=== PATIENT | female | born 1995 | race Caucasian/White ===

== ENCOUNTER 2016-11-12 17:51 | Emergency (ER) | payer OTHER ==
[2016-11-12 18:04] VITALS: BP 101/62; PULSE 92; TEMP 98; BMI 20.3
--- NOTE | 2016-11-12 18:16 | PDOC ---
History of Present Illness - History of Present Illness Initial Comments: 11/12/16 19:38 Patient is a 21 year old female (LNMP: 08/2016 - due to control) with significant medical hx of asthma who is presenting to the ED with lower back pain from today. Patient reports she's had lower back pain for the past year but has never been evaluated by a doctor. Today the patient was lying in bed when she moved and felt as though she pulled a muscle. The patient states she moved again and made the pain worse. She denies fever, chills, nausea, vomiting , diarrhea, incontinence, hematuria, dysuria, or changes in urination. Allergies: Penicillin <Natalie Rowe - Last Filed: 11/12/16 20:38> <Yelena Sanders - Last Filed: 11/12/16 20:53> - General Chief Complaint: Pain Stated Complaint: BACK PAIN Time Seen by Provider: 11/12/16 18:14 Past History <Natalie Rowe - Last Filed: 11/12/16 20:38> - Past Medical History Asthma: Yes Suicide Attempt (Hx): No - Immunization History Immunization Up to Date: Yes - Psycho/Social/Smoking Cessation Hx Anxiety: No Suicidal Ideation: No Smoking Status: No Smoking History: Never smoked Have you smoked in the past 12 months: No Number of Cigarettes Smoked Daily: 20 Information on smoking cessation initiated: No Hx Alcohol Use: No Drug/Substance Use Hx: No Substance Use Type: None <Yelena Sanders - Last Filed: 11/12/16 20:53> - Past Medical History Allergies/Adverse Reactions: Allergies Allergy/AdvReac Type Severity Reaction Status Date / Time Penicillins Allergy Rash Verified 11/12/16 18:04 Home Medications: Ambulatory Orders Mometasone Furoate [Nasonex] 2 inh NS DAILY #1 spray.inh 07/27/15 Albuterol Sulfate Inhaler - [Ventolin Hfa Inhaler -] 2 inh PO Q6H #1 inh Ondansetron [Zofran Odt -] 4 mg SL BID #10 od.tablet 01/06/16 Cyclobenzaprine HCl [Flexeril -] 10 mg PO TID #9 tablet 11/12/16 Ibuprofen [Motrin -] 400 mg PO TID PRN #21 tablet 11/12/16 Polyethylene Glycol 3350 [Miralax (For Daily Use) -] 17 gm PO DAILY #1 bottle Review of Systems - Review of Systems Comments:: 11/12/16 19:44 CONSTITUTIONAL: Absent: fever, chills, diaphoresis, generalized weakness, malaise, loss of appetite HEENT: Absent: rhinorrhea, nasal congestion, throat pain, throat swelling, difficulty swallowing, mouth swelling, ear pain, eye pain, visual changes CARDIOVASCULAR: Absent: chest pain, syncope, palpitations, irregular heart rate, lightheadedness , peripheral edema RESPIRATORY: Absent: cough, shortness of breath, dyspnea with exertion, orthopnea, wheezing, stridor, hemoptysis GASTROINTESTINAL: Absent: abdominal pain, abdominal distension, nausea, vomiting, diarrhea, constipation, melena, hematochezia GENITOURINARY: Absent: dysuria, frequency, urgency, hesitancy, hematuria, flank pain, genital pain MUSCULOSKELETAL: Present: lower back pain Absent: myalgia, arthralgia, joint swelling SKIN: Absent: rash, itching, pallor HEMATOLOGIC/IMMUNOLOGIC: Absent: easy bleeding, easy bruising, lymphadenopathy, frequent infections ENDOCRINE: Absent: unexplained weight gain, unexplained weight loss, heat intolerance, cold intolerance NEUROLOGIC: Absent: headache, focal weakness or paresthesia, dizziness, unsteady gait, seizure, mental status changes, bladder or bowel incontinence. PSYCHIATRIC: Absent: anxiety, depression, suicidal or homicidal ideation, hallucinations <Natalie Rowe - Last Filed: 11/12/16 20:38> *Physical Exam - Vital Signs Last Vital Signs Temp Pulse Resp BP Pulse Ox 98 F 92 H 18 101/62 100 11/12/16 18:00 11/12/16 18:00 11/12/16 18:00 11/12/16 18:00 11/12/16 18:00 - Physical Exam Comments: 11/12/16 19:44 GENERAL: Well developed, well nourished. Awake and alert. No acute distress. HEENT: Normocephalic, atraumatic. PERRLA, EOMI. No conjunctival pallor. Sclera are non- icteric. Moist mucous membranes. Oropharynx is clear. NECK: Supple. Full ROM. No JVD. Carotid pulses 2+ and symmetric, without bruits. No thyromegaly. No lymphadenopathy. CARDIOVASCULAR: Regular rate and rhythm. No murmurs, rubs, or gallops. Distal pulses are 2+ and symmetric. PULMONARY: No evidence of respiratory distress. Lungs clear to auscultation bilaterally. No wheezing, rales or rhonchi. ABDOMINAL: Soft. Non-tender. Non-distended. No rebound or guarding. No organomegaly. Normoactive bowel sounds. MUSCULOSKELETAL: L5-S1 tenderness. Normal range of motion at all joints. No bony deformities. No CVA tenderness. EXTREMITIES: No cyanosis. No clubbing. No edema. No calf tenderness. SKIN: Warm and dry. Normal capillary refill. No rashes. No jaundice. NEUROLOGICAL: Alert, awake, appropriate. Cranial nerves 2-12 intact. Normal speech. Toes are down-going bilaterally. Gait is normal without ataxia. PSYCHIATRIC: Cooperative. Good eye contact. Appropriate mood and affect. <Natalie Rowe - Last Filed: 11/12/16 20:38> - Vital Signs Last Vital Signs Temp Pulse Resp BP Pulse Ox 98 F 92 H 18 101/62 100 11/12/16 18:00 11/12/16 18:00 11/12/16 18:00 11/12/16 18:00 11/12/16 18:00 <Yelena Sanders - Last Filed: 11/12/16 20:53> ED Treatment Course - ADDITIONAL ORDERS Additional order review: Laboratory Results 11/12/16 19:00 Urine HCG, Qual Negative - RADIOLOGY Radiograph Interpretation: 11/12/16 20:38 Lumbar X-Ray Impression: Unremarkable examination, as described Reported By: Frances Charles MD - Medications Given in the ED: ED Medications Discontinued Medications Generic Name Dose Route Start Last Admin Trade Name Freq PRN Reason Stop Dose Admin Ketorolac Tromethamine 60 mg 11/12/16 18:24 11/12/16 18:32 Toradol Injection - IM 11/12/16 18:25 60 mg ONCE ONE Administration <Natalie Rowe - Last Filed: 11/12/16 20:38> *DC/Admit/Observation/Transfer - Attestations Scribe Attestion: 11/12/16 19:46 Documentation prepared by Natalie Rowe, acting as medical device for Yelena Sanders MD. <Natalie Rowe - Last Filed: 11/12/16 20:38> <Yelena Sanders - Last Filed: 11/12/16 20:53> Diagnosis at time of Disposition: Spasm of back muscles Constipation Qualifiers: Constipation type: unspecified constipation type Qualified Code(s): K59.00 - Constipation, unspecified - Discharge Dispostion Disposition: HOME Condition at time of disposition: Stable - Prescriptions Prescriptions: Cyclobenzaprine HCl [Flexeril -] 10 mg PO TID #9 tablet Polyethylene Glycol 3350 [Miralax (For Daily Use) -] 17 gm PO DAILY #1 bottle Ibuprofen [Motrin -] 400 mg PO TID PRN #21 tablet PRN Reason: Back Pain - Referrals Referrals: Chase Peña MD [Primary Care Provider] - - Patient Instructions Printed Discharge Instructions: DI for Constipation, DI for Low Back Pain Additional Instructions: Please nut picker your medications at your pharmacy RETURN FOR WORSENING SYMPTOMS
[2016-11-12] MEDS ORDERED: KETOROLAC TROMETHAMINE 60 MG/2 ML VIAL IM ONE (18:24)
[2016-11-12] MEDS ORDERED: KETOROLAC TROMETHAMINE 60 MG/2 ML VIAL ONE (18:29)
[2016-11-12] MEDS ORDERED: diazePAM 2 MG TABLET PO ONE (19:52)
[2016-11-12] MEDS ORDERED: diazePAM 2 MG TABLET ONE (20:06)
[2016-11-12] MEDS ORDERED: OXYCODONE/APAP 5/325MG COMBO TABLET PO ONE (20:51)
[2016-11-12] MEDS ORDERED: OXYCODONE/APAP 5/325MG COMBO TABLET ONE (20:55)
== END 2016-11-12 21:04 | disposition home or self-care (01) ==
LOC: JER 17:51
PROC: 3E0233Z Introduction of Anti-inflammatory into Muscle, Percutaneous Approach (ICD-10-PCS; principal; 2016-11-12)
DX: M62.830 Muscle spasm of back (principal); K59.00 Constipation, unspecified; J45.909 Unspecified asthma, uncomplicated
CPT/HCPCS: 72100-TC; 84703; 96372; 99283-25

== ENCOUNTER 2020-07-26 16:19 | Emergency (ER) | payer OTHER ==
[2020-07-26 16:37] VITALS: BP 111/51; PULSE 102; TEMP 98.7; BMI 19.4
--- NOTE | 2020-07-26 16:40 | PDOC ---
Rapid Medical Evaluation Chief Complaint: Pain Medical Evaluation: Allergies Allergy/AdvReac Type Severity Reaction Status Date / Time Penicillins Allergy Rash Verified 07/26/20 16:34 07/26/20 16:34 25 yo F h/o asthma, anemia, , LMP 03/23/20 c/o LLQ abd pain x 3 days, approx 17 weeks, + nausea. denies f/c/v, sob, cp, urinary complaints, vaginal bleeding or vaginal discharge. has not had an ultrasound test, does not have an appointment scheduled with OB. NAD ambulatory A/P: Abdominal pain in labs, UA preg us 07/26/20 16:41 Discharge Disposition - Diagnosis Abdominal pain during Qualifiers: Trimester: second trimester Qualified Code(s): O26.892 - Other specified related conditions, second trimester; R10.9 - Unspecified abdominal pain - Referrals - Patient Instructions - Post Discharge Activity
[2020-07-26] MEDS ORDERED: HIV POST EXPOSURE PROPHYLAXIS KIT PO ONE (17:15)
--- NOTE | 2020-07-26 17:28 | PDOC ---
History of Present Illness - General Chief Complaint: Pain Stated Complaint: 17 WEEKS /ABDOMINAL PAIN Time Seen by Provider: 07/26/20 17:11 History Source: Patient - History of Present Illness Timing/Duration: reports: other Quality: reports: mild Past History - Medical History Allergies/Adverse Reactions: Allergies Allergy/AdvReac Type Severity Reaction Status Date / Time Penicillins Allergy Rash Verified 07/26/20 16:34 Home Medications: Ambulatory Orders Albuterol Sulfate Inhaler - [Ventolin HFA Inhaler -] 1 - 2 inh PO Q4H PRN 03/28/15 Oseltamivir Phosphate [Tamiflu] 75 mg PO BID #10 capsule 12/28/17 Prednisone 40 mg PO DAILY #16 tablet 12/28/17 Asthma: Yes COPD: No - Reproductive History Is Patient Now?: Yes - Immunization History Immunization Up to Date: Yes - Psycho-Social/Smoking History Smoking Status: No Smoking History: Never smoked Have you smoked in the past 12 months: No Number of Cigarettes Smoked Daily: 20 - Substance Abuse Hx (Audit-C & DAST Scrn) How often the patient has a drink containing alcohol: Never Score: In Men: 4 or > Positive; In Women: 3 or > Positive: 0 Screen Result (Pos requires Nsg. Audit-10AR): Negative Review of Systems - Review of Systems Constitutional: No: Chills, Fever ABD/GI: Yes: Abdominal cramping. No: Nausea, Vomiting : No: Dysuria, Flank Pain *Physical Exam - Vital Signs Last Vital Signs Temp Pulse Resp BP Pulse Ox 98.7 F 102 H 18 111/51 L 100 07/26/20 16:34 07/26/20 16:34 07/26/20 16:34 07/26/20 16:34 07/26/20 16:34 - Physical Exam General Appearance: Yes: Appropriately Dressed. No: Apparent Distress HEENT: positive: Normal Voice Neck: positive: Supple Respiratory/Chest: negative: Respiratory Distress Gastrointestinal/Abdominal: positive: Soft. negative: Tender Musculoskeletal: negative: CVA Tenderness Integumentary: positive: Dry, Warm Neurologic: positive: Fully Oriented, Alert, Normal Mood/Affect ED Treatment Course - RADIOLOGY Radiology Studies Ordered: Category Date Time Status OB LIMITED US [US] Stat Ultrasound 07/26/20 17:18 Ordered Medical Decision Making - Medical Decision Making 07/26/20 17:24 25-year-old female, hx of irreg menses s/p getting off [employer] 1 yr ago, LMP >2 months ago, just found out she was in clinic last week and states she was told she was approximately 17 weeks though no ultrasound was done, now presents with left lower abd cramps x3 days. No vaginal bleed, dysuria, nausea or vomiting. States she returned to the clinic today w/ abd pain and was referred to the ER see exam w/ abd pain Stable and in NAD Unclear gest age as irreg menses and reports LMP >2 months ago No US this preg No vag bleed or dysuria -US -UA 07/26/20 18:29 UA wnl. Pt currently in US. 07/26/20 18:58 Patient showed 15-week IUP with heart rate. Urine unremarkable. Stable for discharge to follow-up with her PEDICURIST 07/26/20 18:58 Discharge - Discharge Information Problems reviewed: Yes Clinical Impression/Diagnosis: Abdominal pain during Qualifiers: Trimester: second trimester Qualified Code(s): O26.892 - Other specified related conditions, second trimester Condition: Good Disposition: HOME - Follow up/Referral Referrals: Leanne Schmitz MD [Primary Care Provider] - - Patient Discharge Instructions Additional Instructions: Your ultrasound shows a 15 week fetus with heart rate Your urine showed no infection Please follow up with you PEDICURIST - Post Discharge Activity
[2020-07-26 18:17] LABS: PH,URINE 6.5 (5.0-8.0); URINE APPEARANCE TURBID; URINE BILIRUBIN NEGATIVE (NEGATIVE); URINE COLOR YELLOW; URINE GLUCOSE (UA) NEGATIVE (NEGATIVE); URINE KETONE TRACE (NEGATIVE); URINE LEUK ESTERASE NEGATIVE (NEGATIVE); URINE NITRITE NEGATIVE (NEGATIVE); URINE PROTEIN NEGATIVE (NEGATIVE)
== END 2020-07-26 19:13 | disposition home or self-care (01) ==
LOC: JER 16:19
DX: O26.892 Other specified pregnancy related conditions, second trimester (principal); R10.9 Unspecified abdominal pain
CPT/HCPCS: 76815; 81003; 84703; 99284-25

== ENCOUNTER 2020-08-21 17:38 | Emergency (ER) | payer OTHER ==
[2020-08-21 17:58] VITALS: TEMP 97; BMI 20.9
--- OUTSIDE RECORDS SUMMARY | 2020-08-21 18:08 | XMS ---
:1995 Author Organization [facility] Support Name Relationship Address Phone [place] [address] UE, UNEMPLOYED Unavailable Unavailable Unavailable UE Unavailable Unavailable Unavailable [place] [address] [place] [address] [address] [place] [address] Re-disclosure Warning The records that you are about to access may contain information from federally- assisted alcohol or drug abuse programs. If such information is present, then the following federally mandated warning applies: This information has been disclosed to you from records protected by federal confidentiality rules (42 CFR part 2). The federal rules prohibit you from making any further disclosure of this information unless further disclosure is expressly permitted by the written consent of the person to whom it pertains or as otherwise permitted by 42 CFR part 2. A general authorization for the release of medical or other information is NOT sufficient for this purpose. The Federal rules restrict any use of the information to criminally investigate or prosecute any alcohol or drug abuse patient.The records that you are about to access may contain highly sensitive health information, the redisclosure of which is protected by Article 27-F of the [facility] Public Health law. If you continue you may haveaccess to information: Regarding HIV / AIDS; Provided by facilities licensed or operated by the [facility] Office of Mental Health; or Provided by the [facility] Office for People With Developmental Disabilities. If such information is present, then the following [facility] mandated warning applies: This information has been disclosed to you from confidential records which are protected by state law. State law prohibits you from making any further disclosure of this information without the specific written consent of the person to whom it pertains, or as otherwise permitted by law. Any unauthorized further disclosure in violation of state law may result in a fine or half-way sentence or both. A general authorization for the release of medical or other information is NOT sufficient authorization for further disclosure. Insurance Providers Payer name Policy type Policy ID Covered Covered green party's Policy P grady / Coverage green party ID relationship to [employer] type bush PENDING [id number] SP [id number] WC/NF ONLY MAXIM [id number] SP [id number] 600 HEALTH NON CAP Results ID Date Data Source [id number] 07/18/2020 12:00:00 AM EDT [place] Name Value Range Interpretation Code Description Data Lesvia rce(s) Supporting Document(s ) 2019-nCoV [facility] RNA XXX CRUZ+probe- Imp This lab was ordered by JOHNNY Robbins and reported by [employer] Procedure
--- NOTE | 2020-08-21 19:01 | PDOC ---
History of Present Illness - General Chief Complaint: Pain Stated Complaint: ABD PAIN & BACK PAIN Time Seen by Provider: 08/21/20 18:52 - History of Present Illness Initial Comments: HPI: 08/21/20 18:59 25 yo F PMH asthma, , approximately 18.5 weeks gestation, presenting with L sided pelvic discomfort and lower back pain while working today. Denies vaginal bleeding, vaginal discharge, CP, SOB, fevers, chills, N/V, urinary changes. 08/21/20 19:33 Reassessed patient. Complains of ongoing L pelvic pain, 8/10, and low back pain. She expresses a lot of concern due to it being her first and being unsure what pain medication she should be taking. Has a follow up ultrasound this upcoming Saturday. Will give acetaminophen 650 mg and Lidoderm patch for low back. 08/21/20 20:10 TVUS: A single intrauterine gestation is present in breech presentation. There is positive cardiac activity at a rate of 139 bpm. Estimated age by ultrasound: 18 weeks and 4 days, corresponding to delivery date of 01/18/2021. There is a normal amount of amniotic fluid. The placenta has a anterior location. Cervix is closed with a length of 3.5 cm. There is no placenta previa. measurements: BPD = 4.2 cm HC = 15.4 cm AC = 13.4 cm FL = 2.7 cm Incidental note is made of a 1.6 cm dominant follicle in the right ovary. There is no evidence of free fluid. IMPRESSION: 1. Single viable intrauterine gestation in breech position. The estimated age is 18 weeks and 4 days Will f/u UA, response to pain medication. Plan to dc for further outpatient management. 08/21/20 20:35 UA without UTI. Patient feeling better. Will dc with Lidoderm patch, acetaminophen prescription. Past History - Medical History Allergies/Adverse Reactions: Allergies Allergy/AdvReac Type Severity Reaction Status Date / Time Penicillins Allergy Rash Verified 08/21/20 17:58 Home Medications: Ambulatory Orders Albuterol Sulfate Inhaler - [Ventolin HFA Inhaler -] 1 - 2 inh PO Q4H PRN 03/28/15 Oseltamivir Phosphate [Tamiflu] 75 mg PO BID #10 capsule 12/28/17 Prednisone 40 mg PO DAILY #16 tablet 12/28/17 Acetaminophen [Tylenol 8 Hour] 650 mg PO Q6H PRN #30 tablet.er 08/21/20 Lidocaine 5% Patch [Lidoderm Patch -] 1 patch TP DAILY #30 patch 08/21/20 Asthma: Yes COPD: No - Reproductive History Is Patient Now?: Yes - Immunization History Immunization Up to Date: Yes - Psycho-Social/Smoking History Smoking Status: No Smoking History: Never smoked Have you smoked in the past 12 months: No Number of Cigarettes Smoked Daily: 20 *Physical Exam - Vital Signs Last Vital Signs Temp Pulse Resp BP Pulse Ox 97 F L 79 18 113/66 100 08/21/20 17:55 08/21/20 17:55 08/21/20 17:55 08/21/20 17:55 08/21/20 17:55 Discharge - Discharge Information Problems reviewed: Yes Clinical Impression/Diagnosis: Low back pain during in second trimester Abdominal pain during Qualifiers: Trimester: second trimester Qualified Code(s): O26.892 - Other specified related conditions, second trimester Condition: Improved Disposition: HOME - Admission No - Additional Discharge Information Prescriptions: Lidocaine 5% Patch [Lidoderm Patch -] 1 patch TP DAILY #30 patch Acetaminophen [Tylenol 8 Hour] 650 mg PO Q6H PRN #30 tablet.er PRN Reason: Pain - Follow up/Referral Referrals: Leanne Schmitz MD [Primary Care Provider] - - Patient Discharge Instructions Patient Printed Discharge Instructions: DI for Low Back Pain, DI for Abdominal Pain -- Early Additional Instructions: You were seen with abdominal pain and back pain during . Your ultrasound showed that are at 18 weeks and 4 days, and your urine did not show any signs of infection. Please take acetaminophen 650mg every 6 hours as needed for pain. You may also apply Lidoderm patch to your low back up to 12 hours a day. Follow up with your OBGYN appointment on Saturday. Return to the ER if you develop new or worsening symptoms. - Post Discharge Activity
[2020-08-21] MEDS ORDERED: ACETAMINOPHEN 325 MG TABLET (FP) PO ONE (19:33)
--- NOTE | 2020-08-21 19:34 | PDOC ---
Documentation entered by Phani Cowan SCRIBE, acting as scribe for Yelena Sanders MD. Yelena Sanders MD: This documentation has been prepared by the Adan carcamo Xhesika, SCRIBE, under my direction and personally reviewed by me in its entirety. I confirm that the documentation accurately reflects all work, treatment, procedures, and medical decision making performed by me. Attending Attestation - Resident Resident Name: Jacqueline Concepcion - ED Attending Attestation I have performed the following: I have examined & evaluated the patient, The case was reviewed & discussed with the resident, I agree w/resident's findings & plan, Exceptions are as noted - HPI HPI: 08/21/20 18:48 The patient is a 25y/o F, approximately 19 weeks gestation who presents to the ED for L sided pelvic discomfort and lower back pain while working today. Pt denies any vaginal bleeding and discharge. Denies any SOB, CP, fevers, chills, N/V/D. Denies any symptoms. Allergies: NKDA PCP: Leanne Rivera - Physicial Exam PE: 08/21/20 18:52 GENERAL: Awake, alert, and fully oriented, in no acute distress HEAD: No signs of trauma EYES: PERRLA, EOMI, sclera anicteric, conjunctiva clear ENT: Auricles normal inspection, hearing grossly normal, nares patent, oropharynx clear without exudates. Moist mucosa NECK: Normal ROM, supple, no lymphadenopathy, JVD, or masses LUNGS: Breath sounds equal, clear to auscultation bilaterally. No wheezes, and no crackles HEART: Regular rate and rhythm, normal S1 and S2, no murmurs, rubs or gallops ABDOMEN: +protuberant. Soft, normoactive bowel sounds. No guarding, no rebound. No masses EXTREMITIES: Normal range of motion, no edema. No clubbing or cyanosis. No cords, erythema, or tenderness NEUROLOGICAL: Cranial nerves II through XII grossly intact. SKIN: Warm, Dry, normal turgor, no rashes lesions noted. 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 Discharge - Discharge Information Problems reviewed: Yes Clinical Impression/Diagnosis: Low back pain during in second trimester Abdominal pain during Qualifiers: Trimester: second trimester Qualified Code(s): O26.892 - Other specified related conditions, second trimester Condition: Improved Disposition: HOME - Additional Discharge Information Prescriptions: Lidocaine 5% Patch [Lidoderm Patch -] 1 patch TP DAILY #30 patch Acetaminophen [Tylenol 8 Hour] 650 mg PO Q6H PRN #30 tablet.er PRN Reason: Pain - Follow up/Referral Referrals: Leanne Schmitz MD [Primary Care Provider] - - Patient Discharge Instructions Patient Printed Discharge Instructions: DI for Low Back Pain, DI for Abdominal Pain -- Early Additional Instructions: You were seen with abdominal pain and back pain during . Your ultrasound showed that are at 18 weeks and 4 days, and your urine did not show any signs of infection. Please take acetaminophen 650mg every 6 hours as needed for pain. You may also apply Lidoderm patch to your low back up to 12 hours a day. Follow up with your OBGYN appointment on Saturday. Return to the ER if you develop new or worsening symptoms. - Post Discharge Activity
[2020-08-21] MEDS ORDERED: LIDOCAINE 5% TOPICAL PATCH TP ONE (19:43)
[2020-08-21] MEDS ORDERED: ACETAMINOPHEN 325 MG TABLET (FP) ONE (20:13)
[2020-08-21] MEDS ORDERED: LIDOCAINE 5% TOPICAL PATCH ONE (20:13)
[2020-08-21 20:25] LABS: EPI CELLS 7 /uL (0-25.1); HYALINE CASTS 0 /uL (0-3.1); PH,URINE 6.5 (5.0-8.0); URINE APPEARANCE CLEAR; URINE BACTERIA 341 /uL (0-1359); URINE BILIRUBIN NEGATIVE (NEGATIVE); URINE COLOR YELLOW; URINE GLUCOSE (UA) NEGATIVE (NEGATIVE); URINE KETONE NEGATIVE (NEGATIVE); URINE LEUK ESTERASE TRACE (NEGATIVE); URINE NITRITE NEGATIVE (NEGATIVE); URINE PROTEIN NEGATIVE (NEGATIVE); URINE RBC 3 /uL (0-23.9); URINE UROBILINOGEN 0.2 mg/dL (0.2-1.0); URINE WBC 17 /uL (0-25.8)
[2020-08-21 21:05] VITALS: BP 117/70; PULSE 76
[2020-08-21] MEDS ORDERED: LIDOCAINE PATCH REMOVAL MC SCH (22:00)
== END 2020-08-21 21:03 | disposition home or self-care (01) ==
LOC: JER 17:38
DX: O26.892 Other specified pregnancy related conditions, second trimester (principal); Z3A.19 19 weeks gestation of pregnancy
CPT/HCPCS: 76815-TC; 81003; 99284-25

== ENCOUNTER 2021-01-06 08:12 | Inpatient (IN) | payer OTHER ==
[2021-01-06 09:35] LABS: BASO % 0.3 % (0-2.0); EOS % 0.8 % (0-4.5); HEMATOCRIT 36.1 % (32.4-45.2); HEMOGLOBIN 12.8 GM/dL (10.7-15.3); LYMPH % 14.9 % (8-40); MCH 32.8 pg (25.7-33.7); MCHC 35.4 g/dl (32.0-36.0); MEAN CELL VOLUME 92.7 fl (80-96); MONO % 5.4 % (3.8-10.2); NEUT % 78.6 % (42.8-82.8); PLATELET COUNT 239 K/MM3 (134-434); RBC 3.89 M/mm3 (3.60-5.2); RDW 12.6 % (11.6-15.6); WHITE BLOOD COUNT 12.2 K/mm3 (4.0-10.0)
[2021-01-06 09:47] LABS: INR 0.94 (0.83-1.09); PROTHROMBIN TIME (PATIENT) 11.6 SEC (9.7-13.0)
[2021-01-06] MEDS ORDERED: OXYTOCIN 30 UNITS in 0.9% NS 30 UNIT/500 ML INFUS.BAG IVPB ONE (09:48)
[2021-01-06 09:50] LABS: ACTIVATED PTT 25.1 SECONDS (25.2-36.5)
[2021-01-06] MEDS: ELECTROLYTE-148 SOLN 1,000 ML IV SCH (10:00)
[2021-01-06] MEDS ORDERED: CITRIC ACID/SODIUM CITRATE 30 ML UNIT-DOSE CUP PO ONE (10:01)
[2021-01-06 10:05] LABS: CALCIUM 9.2 mg/dL (8.5-10.1)
[2021-01-06 10:09] LABS: CREATININE 0.6 mg/dL (0.55-1.3)
[2021-01-06] MEDS: OXYTOCIN 30 UNITS in 0.9% NS 30 UNIT/500 ML INFUS.BAG IVPB SCH (10:20)
[2021-01-06 10:30] VITALS: BMI 26.9
[2021-01-06] MEDS ORDERED: PCA PUMP NR ONE (19:23)
[2021-01-06] MEDS ORDERED: FENTANYL/BUPIVACAINE/NS/PF - PCEA - 50 ML DISP.SYRIN EP ONE ×2 (19:24→23:45)
[2021-01-06] MEDS ORDERED: NALOXONE HCL 0.4 MG/ML VIAL IVPUSH PRN (19:32)
[2021-01-06] MEDS: FENTANYL/BUPIVACAINE/NS/PF - PCEA - 50 ML DISP.SYRIN EP SCH (19:45)
[2021-01-06] MEDS ORDERED: ELECTROLYTE-148 SOLN 1,000 ML IV SCH ×2 (20:00→21:00)
[2021-01-06 20:46] LABS: URINE BARBITURATES NEGATIVE ng/ml (CUTOFF=200); URINE BENZODIAZEPINES NEGATIVE ng/ml (CUTOFF=200)
[2021-01-06 21:00] LABS: COCAINE, UR NEGATIVE ng/ml (CUTOFF=300); URINE AMPHETAMINES NEGATIVE ng/ml (CUTOFF=500)
[2021-01-06 21:33] LABS: OPIATES, URI NEGATIVE ng/ml (CUTOFF=300)
[2021-01-06 21:34] LABS: METHADONE, UR NEGATIVE ng/ml (CUTOFF=300); PHENCYCLIDINE,URINE NEGATIVE ng/ml (CUTOFF=25)
[2021-01-07] MEDS ORDERED: OXYTOCIN 20 UNITS in 0.9% NS 40 UNIT/2,000 ML INFUS.BAG IV ONE (02:49)
[2021-01-07] MEDS ORDERED: METHYLERGONOVINE MALEATE 0.2 MG/1 ML AMP IM PRN (05:35)
[2021-01-07] MEDS ORDERED: BENZOCAINE 20% 57 GM BOTTLE TP PRN (05:35)
[2021-01-07] MEDS ORDERED: BENZOCAINE 28 GM HEMORRHOIDAL OINTMENT TP PRN (05:35)
[2021-01-07] MEDS ORDERED: BISACODYL 10 MG SUPP.RECT RC PRN (05:35)
[2021-01-07] MEDS ORDERED: WITCH HAZEL 50% (TUCKS) 40 PAD/JAR PAD TP PRN (05:35)
[2021-01-07] MEDS ORDERED: OXYTOCIN 20 UNITS in 0.9% NS 20 UNIT/1,000 ML INFUS.BAG IV SCH (05:45)
[2021-01-07] MEDS: IBUPROFEN 600 MG TABLET (FP) PO PRN (08:38)
[2021-01-07] MEDS: ACETAMINOPHEN 325 MG TABLET (FP) PO PRN (08:38)
[2021-01-07] MEDS: PRENATAL VITAMINS W/ FOLIC ACID TABLET (FP) PO SCH (10:15)
[2021-01-07] MEDS: ELECTROLYTE-148 SOLN 1,000 ML IV SCH (19:05)
[2021-01-07] MEDS: OXYTOCIN 30 UNITS in 0.9% NS 30 UNIT/500 ML INFUS.BAG IVPB SCH (19:05)
[2021-01-07] MEDS: FENTANYL/BUPIVACAINE/NS/PF - PCEA - 50 ML DISP.SYRIN EP SCH (19:06)
[2021-01-08 08:31] LABS: BASO % 0.1 % (0-2.0); EOS % 0.6 % (0-4.5); HEMATOCRIT 30.7 % (32.4-45.2); HEMOGLOBIN 10.8 GM/dL (10.7-15.3); LYMPH % 13.6 % (8-40); MCH 32.7 pg (25.7-33.7); MCHC 35.1 g/dl (32.0-36.0); MEAN CELL VOLUME 93.4 fl (80-96); MONO % 5.4 % (3.8-10.2); NEUT % 80.3 % (42.8-82.8); PLATELET COUNT 186 K/MM3 (134-434); RBC 3.29 M/mm3 (3.60-5.2); RDW 12.7 % (11.6-15.6); WHITE BLOOD COUNT 12.5 K/mm3 (4.0-10.0)
[2021-01-08] MEDS: ACETAMINOPHEN 325 MG TABLET (FP) PO PRN ×2 (08:49→23:54)
[2021-01-08] MEDS: IBUPROFEN 600 MG TABLET (FP) PO PRN ×2 (08:50→23:54)
[2021-01-08] MEDS: PRENATAL VITAMINS W/ FOLIC ACID TABLET (FP) PO SCH (11:22)
[2021-01-08] MEDS ORDERED: SENNOSIDES/DOCUSATE COMBO (SENNA PLUS) TABLET (UD) PO PRN (22:00)
[2021-01-09] MEDS: PRENATAL VITAMINS W/ FOLIC ACID TABLET (FP) PO SCH (09:10)
[2021-01-09] MEDS: IBUPROFEN 600 MG TABLET (FP) PO PRN (09:13)
[2021-01-09] MEDS: ACETAMINOPHEN 325 MG TABLET (FP) PO PRN (09:14)
[2021-01-09 10:02] VITALS: BP 123/75; PULSE 96; TEMP 99.1
== END 2021-01-09 12:55 | disposition home or self-care (01) | DRG 560 ==
LOC: JLDR 08:12 → J3W 01-07 08:00
PROVIDERS: ADMIT Obstetrics & Gynecology; ATTEND Obstetrics & Gynecology
PROC: 10907ZC Drainage of Amniotic Fluid, Therapeutic from Products of Conception, Via Natural or Artificial Opening (ICD-10-PCS; principal; 2021-01-06)
PROC: 3E033VJ Introduction of Other Hormone into Peripheral Vein, Percutaneous Approach (ICD-10-PCS; 2021-01-06)
PROC: 10E0XZZ Delivery of Products of Conception, External Approach (ICD-10-PCS; 2021-01-07)
DX: O36.5930 Maternal care for other known or suspected poor fetal growth, third trimester, not applicable or unspecified (principal); Z3A.49 Greater than 42 weeks gestation of pregnancy; Z37.0 Single live birth; Z88.0 Allergy status to penicillin; Z91.013 Allergy to seafood
CPT/HCPCS: 36415; 59409; 80048; 80307; 85025; 85610; 85730; 86780; 86850; 86900; 86901

== ENCOUNTER 2022-03-30 08:28 | Day surgery (SDC) | payer OTHER ==
[2022-03-29 16:26] VITALS: BMI 20.7
[2022-03-30] MEDS ORDERED: BUPIVACAINE HCL/PF 0.25% (2.5MG/ML) 10 ML VIAL ONE (09:54)
[2022-03-30] MEDS ORDERED: BUPIVACAINE HCL/PF 0.5% (5 MG/ML) 30 ML VIAL IJ ONE (10:53)
[2022-03-30] MEDS ORDERED: BUPIVACAINE LIPOSOME/PF (EXPAREL) 266 MG/20 ML VIAL ONE (10:53)
[2022-03-30] MEDS ORDERED: MIDAZOLAM HCL 2 MG/2 ML SINGLE DOSE VIAL ONE ×3 (10:54→11:22)
[2022-03-30] MEDS ORDERED: BUPIVACAINE HCL 50 ML ONE (11:20)
[2022-03-30] MEDS ORDERED: fentaNYL CITRATE 250 MCG/5 ML VIAL ONE (11:21)
[2022-03-30] MEDS ORDERED: PROPOFOL 20 ML ONE ×2 (11:52)
[2022-03-30] MEDS ORDERED: ALBUTEROL SO4 HFA INHALER IH PRN (12:37)
[2022-03-30] MEDS ORDERED: ONDANSETRON 4 MG/2 ML VIAL IVPUSH PRN (12:39)
[2022-03-30] MEDS ORDERED: oxyCODONE HCL 5 MG TABLET PO PRN (12:39)
[2022-03-30] MEDS ORDERED: LACTATED RINGERS SOLUTION 1,000 ML IV SCH (12:45)
[2022-03-30 14:22] VITALS: TEMP 97.3
[2022-03-30 15:39] VITALS: PULSE 68
[2022-03-30 17:13] VITALS: BP 114/66
== END 2022-03-30 18:05 | disposition home or self-care (01) ==
LOC: FASU 08:28
PROVIDERS: ATTEND Orthopaedic Surgery
PROC: 0QSK04Z Reposition Left Fibula with Internal Fixation Device, Open Approach (ICD-10-PCS; principal; 2022-03-30 11:41)
DX: S82.842A Displaced bimalleolar fracture of left lower leg, initial encounter for closed fracture (principal); X58.XXXA Exposure to other specified factors, initial encounter; Y93.9 Activity, unspecified; Y92.9 Unspecified place or not applicable
CPT/HCPCS: 27792; C1713; 84703; 94760

== ENCOUNTER 2022-07-03 11:41 | Inpatient (IN) | payer OTHER ==
[2022-07-03] MEDS ORDERED: ACETAMINOPHEN 1000 MG/100 ML BAG IVPB ONE (13:40)
[2022-07-03] MEDS ORDERED: ACETAMINOPHEN INJECTION 100 ML IVPB ONE (13:47)
[2022-07-03] MEDS ORDERED: MIDAZOLAM HCL 2 MG/2 ML SINGLE DOSE VIAL ONE (16:04)
[2022-07-03] MEDS ORDERED: PROPOFOL 20 ML ONE ×2 (16:10→16:24)
[2022-07-03] MEDS ORDERED: GENTAMICIN SO4 80 MG/2 ML VIAL ONE (16:26)
[2022-07-03] MEDS ORDERED: BUPIVACAINE HCL 100 ML ONE (16:52)
[2022-07-03] MEDS ORDERED: ACETAMINOPHEN 325 MG TABLET (FP) PO PRN (17:06)
[2022-07-03] MEDS ORDERED: ONDANSETRON 4 MG/2 ML VIAL IVPUSH PRN (17:16)
[2022-07-03] MEDS ORDERED: HYDROmorphone HCL/PF 1 MG/ML VIAL ONE (17:31)
[2022-07-03] MEDS ORDERED: FENTANYL CITRATE/PF 50 MCG/ML VIAL ONE (17:34)
[2022-07-03] MEDS ORDERED: ONDANSETRON 4 MG/2 ML VIAL ONE (17:36)
[2022-07-03] MEDS ORDERED: ceFAZolin 2 GRAM PREMIX BAG IVPB SCH (18:00)
[2022-07-03] MEDS: oxyCODONE HCL 5 MG TABLET PO PRN (18:30)
[2022-07-03] MEDS: LACTATED RINGERS SOLUTION 1,000 ML IV SCH (19:00)
[2022-07-03] MEDS ORDERED: SENNOSIDES/DOCUSATE COMBO (SENNA PLUS) TABLET (UD) PO SCH (22:00)
[2022-07-03] MEDS: ACETAMINOPHEN 325 MG TABLET (FP) PO PRN (22:11)
[2022-07-03] MEDS: SENNOSIDES/DOCUSATE COMBO (SENNA PLUS) TABLET (UD) PO SCH (22:13)
[2022-07-04] MEDS: CEFAZOLIN SODIUM 2 GM in DEXTROSE 5%-WATER 100 ML IVPB SCH ×3 (01:16→18:09)
[2022-07-04] MEDS: oxyCODONE HCL 5 MG TABLET PO PRN ×3 (08:15→20:23)
[2022-07-04] MEDS: ACETAMINOPHEN 325 MG TABLET (FP) PO PRN ×3 (08:16→20:22)
[2022-07-04 08:38] LABS: HEMATOCRIT 35.2 % (32.4-45.2); HEMOGLOBIN 12.3 G/dL (10.7-15.3); MCH 33.1 pg (25.7-33.7); MEAN CELL VOLUME 94.5 fl (80-96); MEAN PLT VOLUME 9.1 fl (7.5-11.1); RBC 3.72 10^6/uL (3.60-5.2); RDW 13.6 % (11.6-15.6)
[2022-07-04] MEDS: SENNOSIDES/DOCUSATE COMBO (SENNA PLUS) TABLET (UD) PO SCH ×2 (10:53→21:26)
[2022-07-04] MEDS: HYDROmorphone HCl 2 MG/ML VIAL IVPUSH PRN (11:23)
[2022-07-04] MEDS: LACTATED RINGERS SOLUTION 1,000 ML IV SCH (18:11)
[2022-07-05] MEDS: CEFAZOLIN SODIUM 2 GM in DEXTROSE 5%-WATER 100 ML IVPB SCH ×3 (00:03→18:03)
[2022-07-05] MEDS: oxyCODONE HCL 5 MG TABLET PO PRN ×2 (02:00→23:25)
[2022-07-05] MEDS: SENNOSIDES/DOCUSATE COMBO (SENNA PLUS) TABLET (UD) PO SCH ×2 (09:18→21:31)
[2022-07-05] MEDS: HYDROmorphone HCl 2 MG/ML VIAL IVPUSH PRN (10:59)
[2022-07-05] MEDS ORDERED: DOCUSATE SODIUM 100 MG CAPSULE (FP) PO PRN (14:25)
[2022-07-05] MEDS: LACTATED RINGERS SOLUTION 1,000 ML IV SCH (18:04)
[2022-07-05] MEDS ORDERED: PIPERACILLIN/TAZOB 3.375 GM 3.375 GM in DEXTROSE 5%-WATER - 50 ML IVPB SCH (18:30)
[2022-07-05] MEDS ORDERED: ONDANSETRON *ODT* 4 MG TABLET SL ONE (20:13)
[2022-07-05] MEDS: PIPERACILLIN/TAZOB 3.375 GM 3.375 GM in DEXTROSE 5%-WATER - 50 ML IVPB SCH (21:30)
[2022-07-05] MEDS: POLYETHYLENE GLYCOL (HEALTHYLAX) 3350 17 GM PACKET PO SCH (21:31)
[2022-07-05] MEDS: ACETAMINOPHEN 325 MG TABLET (FP) PO PRN (21:35)
[2022-07-06] MEDS: PIPERACILLIN/TAZOB 3.375 GM 3.375 GM in DEXTROSE 5%-WATER - 50 ML IVPB SCH ×2 (06:12→15:28)
[2022-07-06] MEDS: ACETAMINOPHEN 325 MG TABLET (FP) PO PRN ×2 (06:44→20:51)
[2022-07-06] MEDS: oxyCODONE HCL 5 MG TABLET PO PRN ×2 (06:45→20:51)
[2022-07-06] MEDS: SENNOSIDES/DOCUSATE COMBO (SENNA PLUS) TABLET (UD) PO SCH ×2 (09:15→23:32)
[2022-07-06] MEDS: POLYETHYLENE GLYCOL (HEALTHYLAX) 3350 17 GM PACKET PO SCH ×2 (09:16→23:32)
[2022-07-06] MEDS: ONDANSETRON *ODT* 4 MG TABLET SL PRN ×2 (10:11→23:36)
[2022-07-06] MEDS: MEROPENEM 1 GM in DEXTROSE 5%-WATER 100 ML IVPB SCH (18:35)
[2022-07-07] MEDS: MEROPENEM 1 GM in DEXTROSE 5%-WATER 100 ML IVPB SCH ×3 (01:06→17:27)
[2022-07-07 08:27] LABS: CALCIUM 8.2 mg/dl (8.5-10); CREATININE 0.6 mg/dl (0.55-1.3)
[2022-07-07] MEDS: ONDANSETRON *ODT* 4 MG TABLET SL PRN (08:40)
[2022-07-07] MEDS: oxyCODONE HCL 5 MG TABLET PO PRN (08:40)
[2022-07-07] MEDS: ACETAMINOPHEN 325 MG TABLET (FP) PO PRN (08:41)
[2022-07-07 09:03] LABS: HEMATOCRIT 35.5 % (32.4-45.2); HEMOGLOBIN 12.6 G/dL (10.7-15.3); MCH 33.1 pg (25.7-33.7); MCHC 35.4 g/dl (32.0-36.0); MEAN CELL VOLUME 93.4 fl (80-96); MEAN PLT VOLUME 8.7 fl (7.5-11.1); PLATELET COUNT 211.7 10^3/uL (134-434); WHITE BLOOD COUNT 6.1 10^3/uL (4.0-10.8)
[2022-07-07] MEDS: POLYETHYLENE GLYCOL (HEALTHYLAX) 3350 17 GM PACKET PO SCH (10:00)
[2022-07-07] MEDS: SENNOSIDES/DOCUSATE COMBO (SENNA PLUS) TABLET (UD) PO SCH (10:00)
[2022-07-07 14:06] VITALS: BP 114/67; PULSE 68; RESP 16; TEMP 98.7
== END 2022-07-07 18:49 | disposition home or self-care (01) | DRG 711 ==
LOC: FER 11:41 → FASUSAT 12:45 → FM/S 17:06
PROVIDERS: ADMIT Orthopaedic Surgery; ATTEND Orthopaedic Surgery
PROC: 02HV33Z Insertion of Infusion Device into Superior Vena Cava, Percutaneous Approach (ICD-10-PCS; principal; 2022-07-06)
PROC: B518ZZA Fluoroscopy of Superior Vena Cava, Guidance (ICD-10-PCS; 2022-07-06)
PROC: 0SPG0JZ Removal of Synthetic Substitute from Left Ankle Joint, Open Approach (ICD-10-PCS; 2022-07-06)
PROC: 0JBR0ZZ Excision of Left Foot Subcutaneous Tissue and Fascia, Open Approach (ICD-10-PCS; 2022-07-06)
PROC: 3E10X8Z Irrigation of Skin and Mucous Membranes using Irrigating Substance (ICD-10-PCS; 2022-07-06)
DX: T81.49XA Infection following a procedure, other surgical site, initial encounter (principal); T84.84XA Pain due to internal orthopedic prosthetic devices, implants and grafts, initial encounter; B96.5 Pseudomonas (aeruginosa) (mallei) (pseudomallei) as the cause of diseases classified elsewhere; B95.7 Other staphylococcus as the cause of diseases classified elsewhere; Y83.8 Other surgical procedures as the cause of abnormal reaction of the patient, or of later complication, without mention of misadventure at the time of the procedure
CPT/HCPCS: 36415; 36569; 77001-TC-FY; 80048; 85027; 85651; 86140; 87070; 87186; 87205; 88300-TC; 94760; 97116-GP; 97162-GP; 99285-25; C1751; Q0162

== ENCOUNTER 2022-09-02 10:27 | Emergency (ER) | payer OTHER ==
[2022-09-02 10:34] VITALS: BP 134/86; PULSE 74; RESP 18; TEMP 98
[2022-09-02] MEDS ORDERED: SODIUM CHLORIDE 0.9% 500 ML INFUS.BAG IV ONE (11:25)
[2022-09-02] MEDS ORDERED: ACETAMINOPHEN 1000 MG/100 ML BAG IVPB ONE (11:25)
[2022-09-02] MEDS ORDERED: morphine CARPU-JECT 4 MG/1 ML DISP.SYRIN IVPUSH ONE (11:25)
[2022-09-02] MEDS ORDERED: ONDANSETRON 4 MG/2 ML VIAL IVPUSH ONE (11:27)
[2022-09-02] MEDS ORDERED: morphine SULFATE 4 MG/ML VIAL ONE (11:30)
[2022-09-02] MEDS ORDERED: ONDANSETRON 4 MG/2 ML VIAL ONE (11:30)
[2022-09-02] MEDS ORDERED: ACETAMINOPHEN INJECTION 100 ML IVPB ONE (11:30)
[2022-09-02 12:01] LABS: BASO % 0.3 % (0-2.0); EOS % 1.3 % (0-4.5); HEMATOCRIT 38.8 % (32.4-45.2); HEMOGLOBIN 13.6 GM/dL (10.7-15.3); LYMPH % 11.7 % (8-40); MCH 32.2 pg (25.7-33.7); MCHC 35.2 g/dl (32.0-36.0); MEAN CELL VOLUME 91.5 fl (80-96); MEAN PLT VOLUME 7.9 fl (7.5-11.1); MONO % 4.6 % (3.8-10.2); NEUT % 82.1 % (42.8-82.8); PLATELET COUNT 253 10^3/uL (134-434); RBC 4.23 M/mm3 (3.60-5.2); RDW 12.7 % (11.6-15.6); WHITE BLOOD COUNT 11.5 K/mm3 (4.0-10.0)
[2022-09-02 12:16] LABS: CHLORIDE 110 mmol/L (98-107); SODIUM 141 mmol/L (136-145)
[2022-09-02 12:18] LABS: ALBUMIN 4.6 g/dl (3.4-5.0); ANION GAP 8 MMOL/L (8-16); CALCIUM 9.6 mg/dL (8.5-10.1); CO2 23 mmol/L (21-32); GLUCOSE,RANDOM 92 mg/dL (74-106); LIPASE 126 U/L (73-393); MAGNESIUM 2.1 mg/dL (1.8-2.4)
[2022-09-02 12:21] LABS: CREATININE 0.9 mg/dL (0.55-1.3)
[2022-09-02 12:22] LABS: BILIRUBIN,TOTAL 0.5 mg/dL (0.2-1); SGOT/AST 12 U/L (15-37); SGPT/ALT 19 U/L (13-61); TOT PROT 8.5 g/dl (6.4-8.2)
[2022-09-02 12:24] LABS: EPI CELLS 21 /uL (0-25.1); HYALINE CASTS 3 /uL (0-3.1); PH,URINE 5.5 (5.0-8.0); URINE APPEARANCE CLOUDY; URINE BACTERIA 22 /uL (0-1359); URINE BILIRUBIN NEGATIVE (NEGATIVE); URINE COLOR YELLOW; URINE GLUCOSE (UA) NEGATIVE (NEGATIVE); URINE KETONE 1+ (NEGATIVE); URINE LEUK ESTERASE 1+ (NEGATIVE); URINE NITRITE NEGATIVE (NEGATIVE); URINE PROTEIN 1+ (NEGATIVE); URINE RBC 40 /uL (0-23.9); URINE WBC 214 /uL (0-25.8)
[2022-09-02 12:24] LABS: ALK PHOS 114 U/L (45-117)
[2022-09-02] MEDS ORDERED: SULFAMETHOXAZOLE/TRIMETHOPRIM 800MG/160MG D.S. TABLET PO ONE (12:29)
[2022-09-02] MEDS ORDERED: KETOROLAC TROMETHAMINE 15 MG/ML VIAL IVPUSH ONE (12:45)
[2022-09-02] MEDS ORDERED: SULFAMETHOXAZOLE/TRIMETHOPRIM 800MG/160MG D.S. TABLET ONE (12:46)
[2022-09-02] MEDS ORDERED: KETOROLAC TROMETHAMINE 15 MG/ML VIAL ONE (12:48)
== END 2022-09-02 15:00 | disposition home or self-care (01) ==
LOC: JER 10:27
PROC: 3E0333Z Introduction of Anti-inflammatory into Peripheral Vein, Percutaneous Approach (ICD-10-PCS; principal; 2022-09-02)
PROC: 3E033GC Introduction of Other Therapeutic Substance into Peripheral Vein, Percutaneous Approach (ICD-10-PCS; 2022-09-02)
PROC: 3E033GC Introduction of Other Therapeutic Substance into Peripheral Vein, Percutaneous Approach (ICD-10-PCS; 2022-09-02)
PROC: 3E033GC Introduction of Other Therapeutic Substance into Peripheral Vein, Percutaneous Approach (ICD-10-PCS; 2022-09-02)
DX: N39.0 Urinary tract infection, site not specified (principal); N13.2 Hydronephrosis with renal and ureteral calculous obstruction
CPT/HCPCS: 36415; 74176-TC; 76775-TC; 80053; 81003; 83690; 83735; 84702; 85025; 87086; 93005; 93010; 99284-25

== ENCOUNTER 2022-09-24 13:06 | Emergency (ER) | payer OTHER ==
[2022-09-24 13:57] VITALS: BP 111/72; PULSE 105; RESP 20; TEMP 99.3
[2022-09-24] MEDS ORDERED: IBUPROFEN 600 MG TABLET (FP) PO ONE ×2 (14:35→15:04)
[2022-09-24] MEDS ORDERED: DEXAMETHASONE 4 MG TABLET (FP) PO ONE (14:45)
[2022-09-24] MEDS ORDERED: DEXAMETHASONE SOD PHOSPHATE 10 MG/1 ML VIAL IVPUSH ONE (15:00)
[2022-09-24] MEDS ORDERED: DEXAMETHASONE SOD PHOSPHATE 10 MG/1 ML VIAL ONE (15:04)
== END 2022-09-24 18:26 | disposition home or self-care (01) ==
LOC: JER 13:06
PROC: 3E0333Z Introduction of Anti-inflammatory into Peripheral Vein, Percutaneous Approach (ICD-10-PCS; principal; 2022-09-24)
DX: J09.X2 Influenza due to identified novel influenza A virus with other respiratory manifestations (principal); R05.1 Acute cough; R09.81 Nasal congestion
CPT/HCPCS: 0241U-QW; 99284-25; J1100